=== PATIENT | female | born 1955 | race Caucasian/White ===

== ENCOUNTER 2016-09-12 13:28 | Outpatient (CLI) | payer BC | END 2016-09-12 13:29 | disposition home or self-care (01) | LOC: MADLABBHPM 13:28 | PROVIDERS: ATTEND Family Medicine | DX: R30.0 Dysuria (principal) | CPT/HCPCS: 36415; 87077; 87086; 87186 ==

== ENCOUNTER 2016-11-11 12:01 | Outpatient (CLI) | payer BC ==
[2016-11-11 12:22] LABS: #Basophils 0.1 thou/uL (0.0-0.2); #Eosinphils 0.1 thou/uL (0.0-0.7); #Lymphocytes 1.6 thou/uL (1.20-3.40); #Monocytes 0.4 thou/uL (0.11-0.59); %Basophils 1.2 % (0.0-1.0); %Eosinophils 1.4 % (0.0-10.0); %Lymphocytes 26.1 % (21.0-51.0); %Monocytes 6.7 % (0.0-10.0); %Neutrophils 64.7 % (42.0-75.0); Hemoglobin 15.1 g/dL (12.0-16.0); Mean Corpuscular HGB CONC 34.2 g/dL (32.0-36.0); Mean Corpuscular Hemoglobin 28.8 pg (27.0-31.0); Mean Corpuscular Volume 84.2 fl (81.0-99.0); Mean Platelet Volume 6.7 fL (7.4-10.4); Platelet Count 202 thou/uL (130-400); Red Blood Cell (RBC) Count 5.25 mill/uL (4.20-5.40); White Blood Cell (WBC) Count 6.2 thou/uL (4.8-10.8)
[2016-11-11 12:28] LABS: Hemoglobin A1c 5.9 % (4.0-6.0)
[2016-11-11 13:11] LABS: ALT (SGPT) 15 U/L (0-55); AST (SGOT) 14 U/L (5-34); Albumin 4.3 g/dL (3.4-4.8); Alkaline Phosphatase 104 U/L (40-150); Anion Gap 14 mmol/L (10-20); BUN (Urea Nitrogen) 14 mg/dL (9.8-20.1); Bilirubin, Direct 0.3 mg/dL (0.1-0.3); Bilirubin, Total 0.9 mg/dL (0.2-1.2); Calc. Creatinine Clearance 0 mL/min (70-130); Calcium 9.6 mg/dL (7.8-10.44); Carbon Dioxide 24 mmol/L (23-31); Cardiac Risk 3.1 (Less than 4.5); Chloride 104 mmol/L (98-107); Cholesterol 166 mg/dL (< 200 Desired); Estimated GFR-MDRD 75; Glucose 122 mg/dL (80-115); HDL Cholesterol 53 mg/dL (>60 Neg Risk); LDL Cholesterol, Calculated 93 mg/dL; Potassium 4.2 mmol/L (3.5-5.1); Protein, Total 6.9 g/dL (5.8-8.1); Sodium 138 mmol/L (136-145); Triglycerides 102 mg/dL (Less than 150)
[2016-11-11 17:11] LABS: Creatinine, Urine 203.42 mg/dL (47-110); Microalbumin Urine 1.2 mg/dL (0.5-50.0); Microalbumin/Creat Ratio 5.9 mg/g (Less than 30)
[2016-11-11 19:21] LABS: Thyroid Stimulating Hormone 2.4011 uIU/mL (0.35-4.94)
[2016-11-12 05:52] LABS: Vitamin D, 25 Hydroxy Greater than 96.0 ng/mL (> 30.0)
== END 2016-11-11 12:02 ==
LOC: MADLABBHPM 12:01
PROVIDERS: ATTEND Family Medicine
DX: M47.812 Spondylosis without myelopathy or radiculopathy, cervical region (principal)
CPT/HCPCS: 36415; 80048; 80061; 80076; 82043; 82306; 83036; 84443; 85025